=== PATIENT | male | born 1995 | race Caucasian/White ===

== ENCOUNTER 2020-03-06 17:46 | Emergency (ER) | payer BC ==
[~2020-03-06] VITALS: Ht 175.3 cm; Wt 81.0 kg
[2020-03-06] MEDS ORDERED: CYCL-1 PO (18:59)
[2020-03-06] MEDS ORDERED: ketorolac tromethamine 15mg/ml inj. IM ONE (19:00)
[2020-03-06] MEDS ORDERED: ketorolac trometh. 30mg/ml inj. IM ONE (19:00)
[2020-03-06 19:10] VITALS: BP 135/93
== END 2020-03-06 19:12 | disposition home or self-care (01) ==
LOC: ER 17:47
DX: S33.5XXA Sprain of ligaments of lumbar spine, initial encounter (principal); X50.0XXA Overexertion from strenuous movement or load, initial encounter; Y93.89 Activity, other specified; Y92.89 Other specified places as the place of occurrence of the external cause; Y99.8 Other external cause status
CPT/HCPCS: 96372; 99283; J1885